=== PATIENT | female | born 1965 | race Caucasian/White ===

== ENCOUNTER 2022-03-03 05:18 | Emergency (ER) | payer MEDICAID ==
[~2022-03-03] VITALS: Ht 162.6 cm; Wt 80.0 kg
[2022-03-03 05:30] VITALS: BP 160/85
[2022-03-03] MEDS ORDERED: TOPUD PO (08:15)
== END 2022-03-03 08:45 | disposition home or self-care (01) ==
LOC: ER 05:18
DX: S09.8XXA Other specified injuries of head, initial encounter (principal); M79.18 Myalgia, other site; I10 Essential (primary) hypertension; E11.9 Type 2 diabetes mellitus without complications; V49.59XA Passenger injured in collision with other motor vehicles in traffic accident, initial encounter; Y93.89 Activity, other specified; Y92.488 Other paved roadways as the place of occurrence of the external cause
CPT/HCPCS: 99284